=== PATIENT | female | born 1955 | race Caucasian/White ===

== ENCOUNTER 2019-05-19 13:59 | Emergency (ER) | payer MEDICARE ==
[~2019-05-19] VITALS: Ht 157.5 cm; Wt 108.9 kg
[~2019-05-19 13:59] MED LIST: GLIMEPIRIDE4 MG PO; LANTUS100 UNITS/ SQ; LISINOPRIL10 MG PO; LISINOPRIL2.5 MG PO; METFORMIN HCL1000 MG PO; NOVOLOG100 UNITS/ SQ; ONGLYZA5 MG PO; PRAVASTATIN SOD20 MG PO
--- OUTSIDE RECORDS SUMMARY | 2019-05-19 14:02 | XMS REPORT | Continuity of Care Document ---
Author Author [email or web address] Address Unknown Phone Unavailable Care Team Providers Care Public Stenographer Name Role Phone [employer] Unavailable Unavailable Problems Problem Status Onset Date Classification Date Reported Comments Source Acute bronchitis, unspecified 09/17/2018 04/01/2019 [facility] J20.9 Active 09/11/2018 [facility] Q63.9 N18.3 RENAL COMPROMISED Active 02/25/2018 [facility] Pain in left foot 10/31/2017 01/31/2018 [facility] M79.672 Active 10/25/2017 [facility] UNK Active 05/08/2017 [facility] ABD RENAL PROTOCOL DX: N28.89=OTHER SPE Active 11/07/2016 [facility] DX: S83.2=BUCKET-HANDLE TEAR OF MEDIAL Active 05/25/2016 [facility] Discharge Diagnosis: Acute UTI 01/19/2016 01/22/2016 [facility] Discharge Diagnosis: Diverticulosis 01/19/2016 01/22/2016 [facility] DIZZINESS Active 01/18/2016 [facility] INFED 1GM, CPT-90373, D50.9 Active 01/05/2016 [facility] Anemia Active Problem 04/01/2019 [facility] Arthritis Resolved Problem 04/01/2019 [facility] CKD stage 3, GFR 30-59 ml/min(Confirmed) Resolved Problem 04/01/2019 [facility] Diabetes Active Problem 04/01/2019 [facility] Hypertension Active Problem 04/01/2019 [facility] Morbid obesity Active Problem 04/01/2019 [facility] Diaphragmatic hernia without obstruction or gangrene 04/01/2019 [facility] IRON DEFICIENCY ANEMIA, UNSPECIFIED Active [facility] Medications Medication Details Route Status Patient Instructions Ordering Provider Order Date Source Albuterol 0.833 MG/ML / Ipratropium Braxton 0.167 MG/ML Inhalant Solution 3 mL, Route: NEB, Dosing Weight 105.114, kg, ONCE, STAT, Start date: 06/04/17 6:57:00 CDT, Stop date: 06/04/17 6:57:00 CDT Inactive 06/04/2017 [facility] Sodium Chloride 0.9% IV 500 mL 500 mL, Rate: 25 ml/hr, Infuse over: 20 hr, Route: IV, Dosing Weight 105.114 kg, Total Volume: 500, Start date: 06/04/17 6:57:00 CDT, Duration: 30 day, Stop date: 07/04/17 6:56:00 CDT Inactive 06/04/2017 [facility] glimepiride 4 mg oral tablet 4 mg=1 tab, PO, Daily, 0 Refill(s) Active 05/30/2017 [facility] Insulin Glargine 100 UNT/ML Injectable Solution [Lantus] 10 unit, SUB-Q, Daily, # 10 mL, 0 Refill(s) Active 05/30/2017 [facility] carvedilol 6.25 mg oral tablet 6.25 mg=1 tab, PO, BID, 0 Refill(s) Active 05/30/2017 [facility] saxagliptin 5 MG Oral Tablet [Onglyza] 5 mg=1 tab, PO, Daily, 0 Refill(s) Active 05/30/2017 [facility] Famotidine 20 MG Oral Tablet [Pepcid] 20 mg=1 tab, PO, BID, # 60 tab, 0 Refill(s) Active 01/19/2016 [facility] Ondansetron 4 MG Disintegrating Tablet [Zofran] 4 mg=1 tab, PO, BID, PRN Nausea and Vomiting, Dissolve tab under tongue, X 5 day, # 10 tab, 0 Refill(s) Active 01/19/2016 [facility] Ciprofloxacin 250 MG Oral Tablet [Cipro] 250 mg=1 tab, PO, Q12H, X 7 day, # 14 tab, 0 Refill(s) Active 01/19/2016 [facility] Famotidine 20 mg, Route: IVP, ONCE, Dosing Weight 100, kg, Priority: STAT, Start date: 01/18/16 23:25:00, Stop date: 01/18/16 23:25:00 Inactive 01/19/2016 [facility] Ondansetron 4 mg, Route: IVP, Drug form: INJ, ONCE, Dosing Weight 100, kg, Priority: STAT, Start date: 01/18/16 23:25:00, Stop date: 01/18/16 23:25:00 Inactive 01/19/2016 [facility] Sodium Chloride 0.154 MEQ/ML Injectable Solution 1,000 mL, 1,000 ml/hr, Infuse Over: 1 hr, Route: IV, ONCE, Priority: STAT, Dosing Weight 100 kg, Start date: 01/18/16 23:25:00, Duration: 1 doses or times, Stop date: 01/18/16 23:25:00 Inactive 01/19/2016 [facility] Famotidine 20 mg, 2 mL, Route: IVP, Drug form: INJ, ONCE, Dosing Weight 100, kg, Priority: STAT, Start date: 01/18/16 21:49:00, Stop date: 01/18/16 21:49:00Notes: (Same as: Pepcid) Can be dilute in 5-10cc NS IVP: Slow IV push over at least 2 minutes. Inactive 01/19/2016 [facility] Ondansetron 4 mg, 2 mL, Route: IVP, Drug form: INJ, ONCE, Dosing Weight 100, kg, Priority: STAT, Start date: 01/18/16 21:49:00, Stop date: 01/18/16 21:49:00Notes: (Same as: Zofran) MEDICATION WASTE Pro duct Size: 4 mg Product Wasted: ___ mg Inactive 01/19/2016 [facility] Sodium Chloride 0.154 MEQ/ML Injectable Solution 1,000 mL, 1000 ml/hr, Infuse Over: 1 hr, Route: IV, 1,000, Drug form: INJ, ONCE, Priority: STAT, Dosing Weight 100 kg, Start date: 01/18/16 21:49:00, Duration: 1 doses or times, Stop date: 01/18/16 21:49:00 Inactive 01/19/2016 [facility] Saline Flush 0.9% 10 mL, Route: IVP, Drug Form: INJ, Dosing Weight 100, kg, PRN, PRN Line Flush, Start date: 01/18/16 21:49:00, Duration: 30 day, Stop date: 02/17/16 21:48:00Notes: (Same as: BD Posiflush) No Longer Active 01/19/2016 [facility] DexFerrum + Sodium Chloride 0.9% IV 500 mL 950 mg, 19 mL, Route: IVPB, Drug form: INJ, ONCALL, Start date: 01/13/16 9:00:00, Duration: 1 day, Stop date: 01/14/16 8:59:00Notes: (Same as:DexFerrum) Non Formulary MEDICATION WASTE Product Size: 100 mg Product Wasted: _50__ mg Inactive 01/13/2016 [facility] DexFerrum + Sodium Chloride 0.9% IV 100 mL 50 mg, 1 mL, Route: IVPB, Drug form: INJ, ONCALL, Start date: 01/13/16 8:30:00, Duration: 1 day, Stop date: 01/14/16 8:29:00Notes: (Same as:DexFerrum) Non Formulary MEDICATION WASTE Product Size: 100 mg Product Wasted: _50__ mg Inactive 01/13/2016 [facility] dexamethasone + Sodium Chloride 0.9% IV 50 mL 10 mg, 2.5 mL, Route: IVPB, Drug form: INJ, ONCALL, Start date: 01/13/16 8:30:00, Duration: 1 day, Stop date: 01/14/16 8:29:00 Inactive 01/13/2016 [facility] Pepcid 20 mg, 2 mL, Route: IVP, Drug form: INJ, ONCALL, Start date: 01/13/16 8:30:00, Duration: 1 day, Stop date: 01/14/16 8:29:00Notes: (Same as: Pepcid) Can be dilute in 5-10cc NS IVP: Slow IV push over at least 2 minutes. Inactive 01/13/2016 [facility] Sodium Chloride 0.9% IV IV, 30 ml/hr, ONCALL, Start date: 01/13/16 8:30:00, Duration: 1, 250 ml Inactive 01/13/2016 [facility] Benadryl + Sodium Chloride 0.9% IV 50 mL 25 mg, 0.5 mL, Route: IVPB, Drug form: INJ, ONCALL, Start date: 01/13/16 8:30:00, Duration: 1 day, Stop date: 01/14/16 8:29:00Notes: (Same as: Benadryl) Inactive 01/13/2016 [facility] Allergies, Adverse Reactions, Alerts Substance Category Reaction Severity Reaction type Status Date Reported Comments Source No Known Medication Allergies Assertion Drug allergy [facility] Immunizations No Data Provided for This Section Results Order Name Results Value Reference Range Date Interpretation Comments Source CHEM PANEL eGFR 25 05/30/2017 Result Comment: The eGFR is calculated using the CKD-EPI formula. In most young, healthy individuals the eGFR will be >90 mL/min/1.73m2. The eGFR declines with age. An eGFR of 60-89 may be normal in some populations, particularly the elderly, for whom the CKD-EPI formula has not been extensively validated. Use of the eGFR is not recommended in the following populations:

Individuals with unstable creatinine concentrations, including patients and those with serious co-morbid conditions.

Patients with extremes in muscle mass or diet.

The data above are obtained from the National Kidney Disease Education Program (NKDEP) which additionally recommends that when the eGFR is used in patients with extremes of body mass index for purposes of drug dosing, the eGFR should be multiplied by the estimated BMI. [facility] CHEM PANEL Chloride Lvl 104 95 - 109 05/30/2017 [facility] CHEM PANEL Potassium Lvl 5.1 3.5 - 5.1 05/30/2017 [facility] CHEM PANEL CO2 28 24 - 32 05/30/2017 [facility] CHEM PANEL AGAP 10.1 10.0 - 20.0 05/30/2017 [facility] CHEM PANEL Calcium Lvl 8.5 8.5 - 10.5 05/30/2017 [facility] CHEM PANEL Glucose Lvl 120 70 - 99 05/30/2017 [facility] CHEM PANEL BUN 46 7 - 22 05/30/2017 [facility] CHEM PANEL Sodium Lvl 137 135 - 145 05/30/2017 [facility] CHEM PANEL Creatinine Lvl 2.10 0.50 - 1.40 05/30/2017 [facility] CHEM PANEL POC Creatinine 2.0 0.5 - 1.4 11/14/2016 [facility] CHEM PANEL eGFR 26 11/14/2016 Result Comment: The eGFR is calculated using the CKD-EPI formula. In most young, healthy individuals the eGFR will be >90 mL/min/1.73m2. The eGFR declines with age. An eGFR of 60-89 may be normal in some populations, particularly the elderly, for whom the CKD-EPI formula has not been extensively validated. Use of the eGFR is not recommended in the following populations:

Individuals with unstable creatinine concentrations, including patients and those with serious co-morbid conditions.

Patients with extremes in muscle mass or diet.

The data above are obtained from the National Kidney Disease Education Program (NKDEP) which additionally recommends that when the eGFR is used in patients with extremes of body mass index for purposes of drug dosing, the eGFR should be multiplied by the estimated BMI. [facility] URINE AND STOOL UA Urobilinogen <=1.0 mg/dL 0.1 - 1.0 01/19/2016 [facility] URINE AND STOOL UA Color Ltyellow 01/19/2016 [facility] URINE AND STOOL UA Leuk Est Large *ABN* (01/19/16 3:08 AM) Negative 01/19/2016 [facility] URINE AND STOOL UA Bacteria Occasional /HPF None Seen /HPF 01/19/2016 [facility] URINE AND STOOL UA WBC >182 0 - 5 01/19/2016 [facility] URINE AND STOOL UA Sq Epi Occasional /LPF Few /LPF 01/19/2016 [facility] URINE AND STOOL UA Bili Negative *NA* (01/19/16 3:08 AM) Negative 01/19/2016 [facility] URINE AND STOOL UA RBC 6 0 - 2 01/19/2016 [facility] URINE AND STOOL UA Blood Small *ABN* (01/19/16 3:08 AM) Negative 01/19/2016 [facility] URINE AND STOOL UA Nitrite Negative (01/19/16 3:08 AM) Negative 01/19/2016 [facility] URINE AND STOOL UA Protein Negative mg/dL Negative mg/dL 01/19/2016 [facility] URINE AND STOOL UA Ketones Negative mg/dL Negative mg/dL 01/19/2016 [facility] URINE AND STOOL UA Glucose 50 mg/dL Negative mg/dL 01/19/2016 [facility] URINE AND STOOL UA pH 5.0 5.0 - 8.0 01/19/2016 [facility] URINE AND STOOL UA Turbidity Slight *ABN* (01/19/16 3:08 AM) Clear 01/19/2016 [facility] URINE AND STOOL UA Spec Grav 1.011 <=1.030 01/19/2016 [facility] CARDIAC ENZYMES Troponin-I <0.02 0.00 - 0.40 01/19/2016 [facility] CARDIAC ENZYMES CK MB 0.7 0.5 - 3.6 01/19/2016 [facility] CARDIAC ENZYMES Total CK 51 12 - 191 01/19/2016 [facility] CARDIAC ENZYMES CK MB Index 1.4 0.0 - 2.5 01/19/2016 [facility] CHEM PANEL Amylase Lvl 53 25 - 115 01/19/2016 [facility] CHEM PANEL Lipase Lvl 115 73 - 393 01/19/2016 [facility] CHEM PANEL A/G Ratio 0.8 0.7 - 1.6 01/19/2016 [facility] CHEM PANEL Globulin 4.0 2.0 - 4.0 01/19/2016 [facility] CHEM PANEL AGAP 12.3 10.0 - 20.0 01/19/2016 [facility] CHEM PANEL Bili Total 0.2 0.2 - 1.3 01/19/2016 [facility] CHEM PANEL Alk Phos 98 39 - 136 01/19/2016 [facility] CHEM PANEL B/C Ratio 25 6 - 25 01/19/2016 [facility] PANEL eGFR 25 01/19/2016 Result Comment: The eGFR is calculated using the CKD-EPI formula. In most young, healthy individuals the eGFR will be >90 mL/min/1.73m2. The eGFR declines with age. An eGFR of 60-89 may be normal in some populations, particularly the elderly, for whom the CKD-EPI formula has not been extensively validated. Use of the eGFR is not recommended in the following populations:

Individuals with unstable creatinine concentrations, including patients and those with serious co-morbid conditions.

Patients with extremes in muscle mass or diet.

The data above are obtained from the National Kidney Disease Education Program (NKDEP) which additionally recommends that when the eGFR is used in patients with extremes of body mass index for purposes of drug dosing, the eGFR should be multiplied by the estimated BMI. [facility] CHEM PANEL Creatinine Lvl 2.10 0.50 - 1.40 01/19/2016 [facility] CHEM PANEL BUN 52 7 - 22 01/19/2016 [facility] CHEM PANEL Glucose Lvl 203 70 - 99 01/19/2016 [facility] CHEM PANEL Albumin Lvl 3.3 3.5 - 5.0 01/19/2016 [facility] CHEM PANEL Total Protein 7.3 6.4 - 8.4 01/19/2016 [facility] CHEM PANEL AST 21 0 - 37 01/19/2016 [facility] CHEM PANEL ALT 16 0 - 65 01/19/2016 [facility] CHEM PANEL Potassium Lvl 5.3 3.5 - 5.1 01/19/2016 [facility] CHEM PANEL Sodium Lvl 136 135 - 145 01/19/2016 [facility] CHEM PANEL Calcium Lvl 9.2 8.5 - 10.5 01/19/2016 [facility] CHEM PANEL Chloride Lvl 106 95 - 109 01/19/2016 [facility] CHEM PANEL CO2 23 24 - 32 01/19/2016 [facility] CHEM PANEL Magnesium Lvl 1.9 1.8 - 2.4 01/19/2016 [facility] HEMATOLOGY Hct 27.6 36.0 - 48.0 01/19/2016 [facility] HEMATOLOGY MCV 76.8 80.0 - 98.0 01/19/2016 [facility] HEMATOLOGY MCH 24.2 27.0 - 31.0 01/19/2016 [facility] MCHC 31.5 32.0 - 36.0 01/19/2016 [facility] HEMATOLOGY RDW 14.9 11.5 - 14.5 01/19/2016 [facility] HEMATOLOGY Platelet 253 133 - 450 01/19/2016 [facility] HEMATOLOGY MPV 9.3 7.4 - 10.4 01/19/2016 [facility] Hgb 8.7 12.0 - 16.0 01/19/2016 [facility] HEMATOLOGY WBC 7.7 3.7 - 10.4 01/19/2016 [facility] HEMATOLOGY RBC 3.60 4.20 - 5.40 01/19/2016 [facility] Eosinophils # 0.3 0.0 - 0.5 01/19/2016 [facility] HEMATOLOGY Microcyte 1+ *ABN* (01/18/16 10:23 PM) None Seen 01/19/2016 [facility] HEMATOLOGY Monocytes # 0.6 0.0 - 0.8 01/19/2016 [facility] HEMATOLOGY Lymphocytes # 1.9 1.0 - 5.5 01/19/2016 [facility] HEMATOLOGY Basophils 0.6 0.0 - 1.0 01/19/2016 [facility] HEMATOLOGY Segs-Bands # 4.9 1.5 - 8.1 01/19/2016 [facility] HEMATOLOGY Eosinophils 3.6 0.0 - 4.0 01/19/2016 [facility] HEMATOLOGY Monocytes 7.6 2.0 - 12.0 01/19/2016 [facility] HEMATOLOGY Segs 63.1 45.0 - 75.0 01/19/2016 [facility] HEMATOLOGY Lymphocytes 25.1 20.0 - 40.0 01/19/2016 [facility] Pathology Reports No Data Provided for This Section Diagnostic Reports Report Value Date Source Chest 2 views DX Clinical Indication: ] Difficulty Breathing for 2 weeks Comparison: None FINDINGS: The PA and lateral chest radiographs shows normal lung volumes without interstitial or airspace opacities, pleural effusions or pneumothorax. The heart size and pulmonary vasculature are normal. There is a large hiatal hernia. The trachea is midline. There are no clinically significant osseous abnormalities noted. IMPRESSION: 1. No chest radiographic evidence of acute cardiopulmonary disease. 2. Large hiatal hernia. 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 3-D postprocessing reformations were also obtained. FINDINGS: Liver: Normal liver contour and signal. No focal hepatic lesion. Gallbladder: Unremarkable. Bile ducts: No ductal dilatation or choledocholithiasis. Spleen: Normal in size and signal. Pancreas: Lobulated lesion (2.2 x 3.1 x 2.3 cm) centered within the pancreatic uncinate process demonstrates numerous thin septations. There is questionable connection of this lesion to the main pancreatic duct. No evidence of ductal dilatation or atrophy. Few tiny sub-5 mm cysts throughout the pancreas. Possible pancreatic divisum. Adrenals: No nodules. Kidneys: Small bilateral kidneys. Cortical scarring within both kidneys. Numerous tiny bilateral renal cysts. No hydronephrosis. No discrete mass. Peritoneum/retroperitoneum: No significant ascites. Vascular: Normal flow signal within the abdominal aorta and IVC. No evidence of aneurysm or dissection. Lymph nodes: No significant lymphadenopathy. Additional findings: Large hiatal hernia. IMPRESSION: Lobulated lesion (2.2 x 3.1 x 2.3 cm) within the pancreatic uncinate process. Differential considerations include serous cystadenoma/cystadenocarcinoma versus a side branch intraductal papillary mucinous neoplasm. Evaluation of this lesion limited due to the lack of IV contrast. If patient cannot receive IV contrast due to chronic kidney failure, consider further evaluation with endoscopic ultrasound. Small bilateral kidneys containing numerous tiny cysts. Large hiatal hernia. SL: SYELIZABETH 03/03/2018 [facility] Foot series DX Exam: Left Foot series DX Clinical Indication: - M79.642 Pain in left hand. Comparison: None. FINDINGS: The 3 views of the foot show diffuse soft tissue edema. Sclerosis is noted involving the proximal 2nd, 3rd and 4th metatarsals with complete loss of the tarsal metatarsal joint space. No acute fracture, subluxation or dislocation. Diffuse vascular calcifications noted. IMPRESSION: 1. Diffuse soft tissue edema with partial metatarsal degenerative changes which may represent Charcot joint. Follow-up magnetic resonance imaging may be helpful for further evaluation as clinically indicated. SL: MINDA 10/25/2017 [facility] Abdomen wo IV contrast CT EXAM: CT abdomen HISTORY: Renal mass COMPARISON: CT 01/19/2016 TECHNIQUE: Axial images of the abdomen without contrast; no IV contrast due to renal insufficiency. Sagittal and coronal reformats. DLP: [id number] FINDINGS: Limited exam without contrast. KIDNEYS: Marked scarring of both kidneys. OTHER SOLID ORGANS: Unenhanced images of the liver, spleen, pancreas, gallbladder and adrenals appear unremarkable. LOWER CHEST: Stable large ventral hernia with intrathoracic stomach. Calcification of the mitral annulus. PERITONEUM AND RETROPERITONEUM: Few small retroperitoneal lymph nodes are nonspecific. No free fluid. Atherosclerosis aorta. IMPRESSION: 1. Marked scarring of the kidneys with associated lobular contour and lack of IV contrast limit evaluation for a mass. An MRI of the kidneys without contrast can further evaluate. 2. Large hiatal hernia with intrathoracic stomach. SL: [id number] 11/14/2016 [facility] Chest 2 views DX Study: Chest 2 views DX Clinical Indication: Dyspnea Comparison: None FINDINGS: The cardiac silhouette is normal in size. The lungs are clear and without consolidation or congestion. No pleural effusion or pneumothorax is seen. Osseous structures are unremarkable. Large hiatal hernia is noted. IMPRESSION: No acute cardiopulmonary disease. SL: [id number] 01/19/2016 [facility] Abdomen/Pelvis wo IV contrast CT Study: Abdomen/Pelvis wo IV contrast CT Clinical Indication: Upper abdominal pain Comparison: None TECHNIQUE: Multiple axial CT images of the abdomen and pelvis were acquired without the administration of intravenous contrast. Oral contrast was administered to the patient. Sagittal and coronal reformatted images were performed. CT Radiation Dose DLP 852.75 mGy-cm FINDINGS: The visualized lung bases are clear bilaterally. Calcified splenic granulomas are seen. Liver, gallbladder, pancreas, and adrenal glands are within the normal limits imposed by the lack of intravenous contrast. Mild atrophy of the kidneys is seen. Urinary bladder is well-distended. Uterus and visualized ovaries are unremarkable. Large hiatal hernia is seen. Multiple sigmoid diverticula are seen without inflammatory change to suggest acute diverticulitis. Appendix is unremarkable. No intraperitoneal free air, free fluid, or pathologic adenopathy is noted. Degenerative change of the lower lumbar spine is seen. IMPRESSION: 1. No acute intra-abdominal/pelvic abnormality. 2. Colonic diverticulosis without acute diverticulitis. 3. Large hiatal hernia. SL: [id number] 01/19/2016 [facility] Consultation Notes No Data Provided for This Section Discharge Summaries No Data Provided for This Section History and Physicals No Data Provided for This Section Vital Signs Vital Sign Value Date Comments Source Systolic (mm Hg) 152 10/26/2017 [facility] Diastolic (mm Hg) 78 10/26/2017 [facility] Heart Rate 84 10/26/2017 [facility] Systolic (mm Hg) 166 06/04/2017 [facility] Diastolic (mm Hg) 86 06/04/2017 [facility] Respitory Rate 16 06/04/2017 [facility] Systolic (mm Hg) 144 06/04/2017 [facility] Diastolic (mm Hg) 79 06/04/2017 [facility] Respitory Rate 17 06/04/2017 [facility] Respitory Rate 21 06/04/2017 [facility] Systolic (mm Hg) 128 06/04/2017 [facility] Diastolic (mm Hg) 69 06/04/2017 [facility] Height 157.48 cm 05/30/2017 [facility] BMI Calculated 42.38 05/30/2017 [facility] Weight 105.114 05/30/2017 [facility] Temperature Oral (F) 98.0 F 05/30/2017 [facility] Heart Rate 74 05/30/2017 [facility] Systolic (mm Hg) 175 01/19/2016 [facility] Diastolic (mm Hg) 96 01/19/2016 [facility] Respitory Rate 16 01/19/2016 [facility] Respitory Rate 18 01/19/2016 [facility] Systolic (mm Hg) 153 01/19/2016 [facility] Diastolic (mm Hg) 87 01/19/2016 [facility] Respitory Rate 20 01/19/2016 [facility] Heart Rate 82 01/19/2016 [facility] Weight 100 01/19/2016 [facility] BMI Calculated 39.05 01/19/2016 [facility] Height 160.02 cm 01/19/2016 [facility] Temperature Oral (F) 97.6 F 01/19/2016 [facility] Systolic (mm Hg) 141 01/19/2016 [facility] Diastolic (mm Hg) 80 01/19/2016 [facility] Heart Rate 83 01/19/2016 [facility] Temperature Oral (F) 98.1 F 01/13/2016 [facility] Respitory Rate 16 01/13/2016 [facility] Heart Rate 87 01/13/2016 [facility] Systolic (mm Hg) 122 01/13/2016 [facility] Diastolic (mm Hg) 73 01/13/2016 [facility] Encounters Location Location Details Encounter Type Encounter Number Reason For Visit Attending Provider ADM Date DC Date Status Source [facility] [place] [facility] [id number] John Franco 02/15/2015 [facility] [id number] Hank Roy 01/13/2016 02/12/2016 [facility] [id number] Miya Arora 01/19/2016 01/19/2016 [facility] Outpatient [id number] [facility] 11/03/2016 [facility] Outpatient [id number] [facility] 11/14/2016 11/15/2016 [facility] Outpatient [id number] [facility] 11/24/[address] [facility] Outpatient [id number] [facility] 12/05/[address] [facility] Outpatient [id number] [facility] 04/02/[address] [facility] Outpatient [id number] XIOMY GARNER 04/10/2017 [facility] Bedded Outpatient [id number] John Avilez 06/04/2017 06/04/2017 [facility] Outpatient [id number] Jignesh Johnson 10/25/2017 10/26/2017 [facility] Outpatient [id number] [facility] 10/26/2017 [facility] Outpatient [id number] [facility] 10/26/2017 10/27/2017 [facility] Outpatient [id number] Maurizio [facility] 03/03/2018 03/04/2018 [facility] Outpatient [id number] Jignesh Johnson 09/11/2018 09/12/2018 [facility] Procedures Procedure Code Date Perfomer Comments Source Mammogram [id number] 10/15/2013 [facility] Mammogram [id number] 10/15/2013 [facility] Colonoscopy [id number] 10/15/2012 [facility] Colonoscopy [id number] 10/15/2012 [facility] Esophagogastroduodenoscopy [id number] [facility] Meniscal repair [id number] [facility] Esophagogastroduodenoscopy [id number] [facility] Meniscal repair [id number] [facility] Assessment and Plan Assessment and Plan Date Source Extracted from:Title: Education PreOp Generic Author: Rigo Martinez RN Date: 06/04/17 Patient Education Preoperative Procedure Education Identified Need: Diagnosis (Mass), Surgery/Procedure (EGD/EUS), Safety/patient in view/call renee in reach, Infection Control. Resources/Interventions Used: Procedure Specific Instructions, Unit Specific Protocols Endoscopy. Identified Learners: patient. Teaching Method: verbal instruction. Motivation Level: responsive/eager, asks questions. Ready to Learn: Yes. Understanding/Response: Good/Verbalizes. Date/Time: 06/04/2017 06:39. Author: Rigo Martinez RN. 06/04/2017 [facility] Plan of Care No Data Provided for This Section Social History Social History Date Source Social History TypeResponse Alcohol Never Smoking Status Never smoker; Exposure to Tobacco Smoke None; Cigarette Smoking Last 365 Days No; Reg Smoking Cessation Counseling No entered on: 10/26/17 01/13/2016 [facility] Social History TypeResponse Alcohol Never Smoking Status Never smoker; Exposure to Tobacco Smoke None; Cigarette Smoking Last 365 Days No; Reg Smoking Cessation Counseling No entered on: 10/26/17 01/13/2016 [facility] No data available for this section 02/16/2015 [facility] Family History No Data Provided for This Section Advance Directives No Data Provided for This Section Functional Status No Data Provided for This Section
--- OUTSIDE RECORDS SUMMARY | 2019-05-19 14:03 | XMS REPORT | Summary of Care ---
Author Organization Unknown Address Unknown Phone Unavailable Encounter HQ Encntr_candy(JEAN) [id number] Date(s): 02/15/15 - 02/15/15 [facility] Outpatient Imaging - [address] [phone] Discharge Disposition: Home Physician Attending: John Franco MD Vital Signs No data available for this section Problem List No data available for this section Allergies, Adverse Reactions, Alerts No data available for this section Medications No data available for this section Results No data available for this section Immunizations No data available for this section Procedures No data available for this section Social History No data available for this section Assessment and Plan No data available for this section
--- OUTSIDE RECORDS SUMMARY | 2019-05-19 14:03 | XMS REPORT | Summary of Care ---
Author Author [facility] Organization [facility] Address Unknown Phone Unavailable Encounter HQ Desi(FIN) [id number] Date(s): 10/26/17 - 10/26/17 [facility] [address], [address] [place] [address] [phone] Discharge Disposition: Home or Self Care Attending Physician: Maurizio Soto MD Vital Signs Most recent to 1 oldest [Reference Range]: Blood Pressure 152/78 mmHg [90-140/60-90 mmHg] *HI* (10/26/17 11:32 AM) Peripheral Pulse 84 bpm Rate [60-100 bpm] (10/26/17 11:32 AM) Problem List Condition Effective Dates Status Health Status Informant Anemia(Confirmed) Active Arthritis(Confirmed) Resolved CKD (chronic kidney Resolved disease) stage 3, GFR 30-59 ml/min(Confirmed) Diabetes(Confirmed) Active Hypertension(Confirm Active ed) Morbid Active obesity(Confirmed) Allergies, Adverse Reactions, Alerts Substance Reaction Severity Status NKDA Active Medications No Known Medications Results No data available for this section Immunizations No data available for this section Procedures Procedure Date Related Diagnosis Body Site Status Mammogram 2013 Completed Colonoscopy 2012 Completed Esophagogastroduodenoscopy Completed Meniscal repair Completed Social History Social History Type Response Alcohol Never Smoking Status Never smoker; Exposure to Tobacco Smoke None; Cigarette Smoking Last 365 Days No; Reg Smoking Cessation Counseling No entered on: 10/26/17 Assessment and Plan No data available for this section
--- OUTSIDE RECORDS SUMMARY | 2019-05-19 14:03 | XMS REPORT | Summary of Care ---
Author Author [facility] Organization [facility] Address Unknown Phone Unavailable Encounter CRISTOPHER Weeks(JEAN) [id number] Date(s): 01/18/16 - 01/19/16 [facility] [address] [place] [address]- Discharge Diagnosis: Acute UTI Discharge Diagnosis: Diverticulosis Discharge Disposition: Home Attending Physician: Miya Arora DO Vital Signs 1 2 3 Most recent to oldest [Reference Range]: 160.02 cm (01/18/16 9:46 PM) Height 97.6 DegF (01/18/16 9:46 PM) Temperature Oral [96.4-99.1 DegF] 175/96 mmHg *HI* (01/19/16 3:47 AM) 153/87 mmHg *HI* (01/18/16 10:24 PM) 141/80 mmHg *HI* (01/18/16 9:46 PM) Blood Pressure [90-140/60-90 mmHg] 16 BRMIN (01/19/16 3:47 AM) 18 BRMIN (01/19/16 1:40 AM) 20 BRMIN (01/18/16 10:24 PM) Respiratory Rate [14-20 BRMIN] 82 bpm (01/18/16 10:24 PM) 83 bpm (01/18/16 9:46 PM) Peripheral Pulse Rate [60-100 bpm] 100 kg (01/18/16 9:46 PM) Weight 39.05 m2 (01/18/16 9:46 PM) Body Mass Index Problem List Condition Effective Dates Status Health Status Informant Anemia(Confirmed) Active Arthritis(Confirmed) Resolved CKD (chronic kidney Resolved disease) stage 3, GFR 30-59 ml/min(Confirmed) Diabetes(Confirmed) Active Hypertension(Confirm Active ed) Allergies, Adverse Reactions, Alerts Substance Reaction Severity Status NKDA Active Medications Cipro 250 mg oral tablet 250 mg=1 tab, PO, Q12H, X 7 day, # 14 tab, 0 Refill(s) Start Date: 01/19/16 Stop Date: 01/26/16 Status: Ordered famotidine 20 mg, 2 mL, Route: IVP, Drug form: INJ, ONCE, Dosing Weight 100, kg, Priority: STAT, Start date: 01/18/16 21:49:00, Stop date: 01/18/16 21:49:00 Notes: (Same as: Pepcid)Can be dilute in 5-10cc NS IVP: Slow IV push over at le ast 2 minutes. Start Date: 01/18/16 Stop Date: 01/18/16 Status: Completed famotidine 20 mg, Route: IVP, ONCE, Dosing Weight 100, kg, Priority: STAT, Start date: 02/27 23:25:00, Stop date: 01/18/16 23:25:00 Start Date: 01/18/16 Stop Date: 01/18/16 Status: Discontinued ondansetron 4 mg, 2 mL, Route: IVP, Drug form: INJ, ONCE, Dosing Weight 100, kg, Priority: S TAT, Start date: 01/18/16 21:49:00, Stop date: 01/18/16 21:49:00 Notes: (Same as: Reagan) MEDICATION WASTE Product Size: 4 mgProduct Was dominga: ___ mg Start Date: 01/18/16 Stop Date: 01/18/16 Status: Completed ondansetron 4 mg, Route: IVP, Drug form: INJ, ONCE, Dosing Weight 100, kg, Priority: STAT, S tart date: 01/18/16 23:25:00, Stop date: 01/18/16 23:25:00 Start Date: 01/18/16 Stop Date: 01/18/16 Status: Discontinued Pepcid 20 mg oral tablet 20 mg=1 tab, PO, BID, # 60 tab, 0 Refill(s) Start Date: 01/19/16 Status: Ordered Saline Flush 0.9% 10 mL, Route: IVP, Drug Form: INJ, Dosing Weight 100, kg, PRN, PRN Line Flush, S tart date: 01/18/16 21:49:00, Duration: 30 day, Stop date: 02/17/16 21:48:00 Notes: (Same as: BD Posiflush) Start Date: 01/18/16 Stop Date: 01/19/16 Status: Discontinued Sodium Chloride 0.9% (Bolus) IV 1,000 mL, 1000 ml/hr, Infuse Over: 1 hr, Route: IV, 1,000, Drug form: INJ, ONCE, Priority: STAT, Dosing Weight 100 kg, Start date: 01/18/16 21:49:00, Duration: 1 doses or times, Stop date: 01/18/16 21:49:00 Start Date: 01/18/16 Stop Date: 01/18/16 Status: Completed Sodium Chloride 0.9% (Bolus) IV 1,000 mL, 1,000 ml/hr, Infuse Over: 1 hr, Route: IV, ONCE, Priority: STAT, Dosin g Weight 100 kg, Start date: 01/18/16 23:25:00, Duration: 1 doses or times, Stop date: 01/18/16 23:25:00 Start Date: 01/18/16 Stop Date: 01/18/16 Status: Discontinued Zofran ODT 4 mg oral tablet, disintegrating 4 mg=1 tab, PO, BID, PRN Nausea and Vomiting, Dissolve tab under tongue, X 5 day , # 10 tab, 0 Refill(s) Start Date: 01/19/16 Stop Date: 01/24/16 Status: Ordered Results ELECTROLYTES Most recent to 1 oldest [Reference Range]: Sodium Lvl [135-145 136 mEq/L mEq/L] (01/18/16 10:23 PM) Potassium Lvl 5.3 mEq/L [3.5-5.1 mEq/L] *HI* (01/18/16 10:23 PM) Chloride Lvl [95-109 106 mEq/L mEq/L] (01/18/16 10:23 PM) CO2 [24-32 mEq/L] 23 mEq/L *LOW* (01/18/16 10:23 PM) AGAP [10.0-20.0 12.3 mEq/L mEq/L] (01/18/16 10:23 PM) CHEM PANEL Most recent to 1 oldest [Reference Range]: Creatinine Lvl 2.10 mg/dL [0.50-1.40 mg/dL] *HI* (01/18/16 10:23 PM) eGFR 25 mL/min/1.73m2 1 *NA* (01/18/16: PM) BUN [7-22 mg/dL] 52 mg/dL *HI* (01/18/16:23 PM) B/C Ratio [6-25] 25 (01/18/16:23 PM) Glucose Lvl [70-99 203 mg/dL mg/dL] *HI* (01/18/16: PM) Total Protein 7.3 g/dL [6.4-8.4 g/dL] (01/18/16: PM) Albumin Lvl [3.5-5.0 3.3 g/dL g/dL] *LOW* (01/18/16: PM) Globulin [2.0-4.0 4.0 g/dL g/dL] (01/18/16: PM) A/G Ratio [0.7-1.6] 0.8 (01/18/16: PM) Calcium Lvl 9.2 mg/dL [8.5-10.5 mg/dL] (01/18/16:23 PM) Magnesium Lvl 1.9 mg/dL [1.8-2.4 mg/dL] (01/18/16:23 PM) ALT [0-65 unit/L] 16 unit/L (01/18/16:23 PM) AST [0-37 unit/L] 21 unit/L (01/18/16:23 PM) Alk Phos [39-136 98 unit/L unit/L] (01/18/16:23 PM) Bili Total [0.2-1.3 0.2 mg/dL mg/dL] (01/18/16 10:23 PM) Amylase Lvl [25-115 53 unit/L unit/L] (01/18/16 10:23 PM) Lipase Lvl [73-393 115 unit/L unit/L] (01/18/16 10:23 PM) 1Result Comment: The eGFR is calculated using the [...] from the National Kidney Disease Education Program ( NKDEP) which additionally recommends that when the eGFR is used in patients with extremes of body mass index for purposes of drug dosing, the eGFR should be mul tiplied by the estimated BMI. CARDIAC ENZYMES Most recent to 1 oldest [Reference Range]: Total CK [12-191 51 unit/L unit/L] (01/18/16 10:23 PM) CK MB [0.5-3.6 0.7 ng/mL ng/mL] (01/18/16 10:23 PM) CK MB Index 1.4 [0.0-2.5] (01/18/16 10:23 PM) Troponin-I <0.02 ng/mL [0.00-0.40 ng/mL] (01/18/16 10:23 PM) URINE AND STOOL Most recent to 1 oldest [Reference Range]: UA Turbidity [Clear] Slight *ABN* (01/19/16 3:08 AM) UA Color Ltyellow *NA* (01/19/16 3:08 AM) UA pH [5.0-8.0] 5.0 (01/19/16 3:08 AM) UA Spec Grav 1.011 [<=1.030] (01/19/16 3:08 AM) UA Glucose [Negative 50 mg/dL mg/dL] *ABN* (01/19/16 3:08 AM) UA Blood [Negative] Small *ABN* (01/19/16 3:08 AM) UA Ketones [Negative Negative mg/dL mg/dL] *NA* (01/19/16 3:08 AM) UA Protein [Negative Negative mg/dL mg/dL] (01/19/16 3:08 AM) UA Urobilinogen <=1.0 mg/dL [0.1-1.0 mg/dL] *NA* (01/19/16 3:08 AM) UA Bili [Negative] Negative *NA* (01/19/16 3:08 AM) UA Leuk Est Large [Negative] *ABN* (01/19/16 3:08 AM) UA Nitrite Negative [Negative] (01/19/16 3:08 AM) UA WBC [0-5 /HPF] >182 /HPF *HI* (01/19/16 3:08 AM) UA RBC [0-2 /HPF] 6 /HPF *HI* (01/19/16 3:08 AM) UA Bacteria [None Occasional /HPF Seen /HPF] *NA* (01/19/16 3:08 AM) UA Sq Epi [Few /LPF] Occasional /LPF *NA* (01/19/16 3:08 AM) HEMATOLOGY Most recent to 1 oldest [Reference Range]: WBC [3.7-10.4 K/CMM] 7.7 K/CMM (01/18/16 10:23 PM) RBC [4.20-5.40 3.60 M/CMM M/CMM] *LOW* (01/18/16 10:23 PM) Hgb [12.0-16.0 g/dL] 8.7 g/dL *LOW* (01/18/16 10:23 PM) Hct [36.0-48.0 %] 27.6 % *LOW* (01/18/16 10:23 PM) MCV [80.0-98.0 fL] 76.8 fL *LOW* (01/18/16 10:23 PM) MCH [27.0-31.0 pg] 24.2 pg *LOW* (01/18/16 10:23 PM) MCHC [32.0-36.0 31.5 g/dL g/dL] *LOW* (01/18/16 10:23 PM) RDW [11.5-14.5 %] 14.9 % *HI* (01/18/16 10:23 PM) Platelet [133-450 253 K/CMM K/CMM] (01/18/16 10:23 PM) MPV [7.4-10.4 fL] 9.3 fL (01/18/16 10:23 PM) Segs [45.0-75.0 %] 63.1 % (01/18/16 10:23 PM) Lymphocytes 25.1 % [20.0-40.0 %] (01/18/16 10:23 PM) Monocytes [2.0-12.0 7.6 % %] (01/18/16 10:23 PM) Eosinophils [0.0-4.0 3.6 % %] (01/18/16 10:23 PM) Basophils [0.0-1.0 0.6 % %] (01/18/16 10:23 PM) Segs-Bands # 4.9 K/CMM [1.5-8.1 K/CMM] (01/18/16 10:23 PM) Lymphocytes # 1.9 K/CMM [1.0-5.5 K/CMM] (01/18/16 10:23 PM) Monocytes # [0.0-0.8 0.6 K/CMM K/CMM] (01/18/16 10:23 PM) Eosinophils # 0.3 K/CMM [0.0-0.5 K/CMM] (01/18/16 10:23 PM) Microcyte [None 1+ Seen] *ABN* (01/18/16 10:23 PM) Immunizations No data available for this section Procedures Procedure Date Related Diagnosis Body Site Mammogram 2013 Colonoscopy 2012 Social History Social History Type Response Alcohol Never Smoking Status Never smoker; Exposure to Tobacco Smoke None; Cigarette Smoking Last 365 Days No; Reg Smoking Cessation Counseling No Assessment and Plan No data available for this section
--- OUTSIDE RECORDS SUMMARY | 2019-05-19 14:03 | XMS REPORT | Summary of Care ---
Author Author [facility] Organization [facility] Address Unknown Phone Unavailable Encounter HQ Desi(FIN) [id number] Date(s): 10/26/17 - 10/26/17 [facility] [address], [address] [place] [address] [phone] Discharge Disposition: Home or Self Care Attending [...]
--- OUTSIDE RECORDS SUMMARY | 2019-05-19 14:03 | XMS REPORT | Summary of Care ---
Author Author [facility] Organization [facility] Address Unknown Phone Unavailable Encounter CRISTOPHER Weeks(JEAN) [id number] Date(s): 11/14/16 - 11/14/16 [facility] [address] [place] [address]- Discharge Disposition: Home or Self Care Attending Physician: Maurizio Soto MD Referring Physician: Maurizio Soto MD Vital Signs No data available for this section Problem List Condition Effective Dates Status Health Status Informant Anemia(Confirmed) Active Arthritis(Confirmed) Resolved CKD (chronic kidney Resolved disease) stage 3, GFR 30-59 ml/min(Confirmed) Diabetes(Confirmed) Active Hypertension(Confirm Active ed) Morbid Active obesity(Confirmed) Allergies, Adverse Reactions, Alerts Substance Reaction Severity Status NKDA Active Medications No data available for this section Results CHEM PANEL Most recent to 1 oldest [Reference Range]: eGFR 26 mL/min/1.73m2 1 *NA* (11/14/16 10:21 AM) POC Creatinine 2.0 mg/dL [0.5-1.4 mg/dL] *HI* (11/14/16 10:21 AM) 1Result Comment: The eGFR is calculated using [...] be mul tiplied by the estimated BMI. Immunizations No data available for this section Procedures Procedure Date Related Diagnosis Body Site Mammogram 2013 Colonoscopy 2012 Social History Social History Type Response Alcohol Never Smoking Status Never smoker; Exposure to Tobacco Smoke None; Cigarette Smoking Last 365 Days No; Reg Smoking Cessation Counseling No Assessment and Plan No data available for this section
--- OUTSIDE RECORDS SUMMARY | 2019-05-19 14:03 | XMS REPORT | Summary of Care ---
Author Author [facility] Organization [facility] Address Unknown Phone Unavailable Encounter HQ Desi(FIN) [id number] Date(s): 10/26/17 - 10/26/17 [facility] [address], [address] [place] [address] [phone] Discharge Disposition: Home or Self Care Attending [...]
--- OUTSIDE RECORDS SUMMARY | 2019-05-19 14:03 | XMS REPORT | Summary of Care ---
Author Author [facility] Organization [facility] Address Unknown Phone Unavailable Encounter CRISTOPHER Weeks(JEAN) [id number] Date(s): 01/13/16 - 02/11/16 [facility] [address] [place] [address]- Discharge Disposition: Home Attending Physician: Hank Roy MD Referring Physician: Hank Roy MD Vital Signs Most recent to 1 oldest [Reference Range]: Temperature Oral 98.1 DegF [96.4-99.1 DegF] (01/13/16 9:00 AM) Blood Pressure 122/73 mmHg [90-140/60-90 mmHg] (01/13/16 9:00 AM) Respiratory Rate 16 BRMIN [14-20 BRMIN] (01/13/16 9:00 AM) Peripheral Pulse 87 bpm Rate [60-100 bpm] (01/13/16 9:00 AM) Problem List Condition Effective Dates Status Health Status Informant Anemia(Confirmed) Active Arthritis(Confirmed) Resolved CKD (chronic kidney Resolved disease) stage 3, GFR 30-59 ml/min(Confirmed) Diabetes(Confirmed) Active Hypertension(Confirm Active ed) Allergies, Adverse Reactions, Alerts Substance Reaction Severity Status NKDA Active Medications Benadryl + Sodium Chloride 0.9% IV 50 mL 25 mg, 0.5 mL, Route: IVPB, Drug form: INJ, ONCALL, Start date: 01/13/16 8:30:00 , Duration: 1 day, Stop date: 01/14/16 8:29:00 Notes: (Same as: Benadryl) Start Date: 01/13/16 Stop Date: 01/13/16 Status: Completed dexamethasone + Sodium Chloride 0.9% IV 50 mL 10 mg, 2.5 mL, Route: IVPB, Drug form: INJ, ONCALL, Start date: 01/13/16 8:30:00 , Duration: 1 day, Stop date: 01/14/16 8:29:00 Start Date: 01/13/16 Stop Date: 01/13/16 Status: Completed DexFerrum + Sodium Chloride 0.9% IV 100 mL 50 mg, 1 mL, Route: IVPB, Drug form: INJ, ONCALL, Start date: 01/13/16 8:30:00, Duration: 1 day, Stop date: 01/14/16 8:29:00 Notes: (Same as:DexFerrum)Non Formulary MEDICATION WASTE Product Size: 100 mgProduct Wasted: _50__ mg Start Date: 01/13/16 Stop Date: 01/13/16 Status: Completed DexFerrum + Sodium Chloride 0.9% IV 500 mL 950 mg, 19 mL, Route: IVPB, Drug form: INJ, ONCALL, Start date: 01/13/16 9:00:00 , Duration: 1 day, Stop date: 01/14/16 8:59:00 Notes: (Same as:DexFerrum)Non Formulary MEDICATION WASTE Product Size: 100 mgProduct Wasted: _50__ mg Start Date: 01/13/16 Stop Date: 01/13/16 Status: Completed Pepcid 20 mg, 2 mL, Route: IVP, Drug form: INJ, ONCALL, Start date: 01/13/16 8:30:00, D uration: 1 day, Stop date: 01/14/16 8:29:00 Notes: (Same as: Pepcid)Can be dilute in 5-10cc NS IVP: Slow IV push over at le ast 2 minutes. Start Date: 01/13/16 Stop Date: 01/13/16 Status: Completed Sodium Chloride 0.9% IV IV, 30 ml/hr, ONCALL, Start date: 01/13/16 8:30:00, Duration: 1, 250 ml Start Date: 01/13/16 Stop Date: 01/13/16 Status: Completed Results No data available for this section Immunizations No data available for this section Procedures Procedure Date Related Diagnosis Body Site Mammogram 2013 Colonoscopy 2013 Social History Social History Type Response Alcohol Never Smoking Status Never smoker; Exposure to Tobacco Smoke None; Cigarette Smoking Last 365 Days No; Reg Smoking Cessation Counseling No Assessment and Plan No data available for this section
--- OUTSIDE RECORDS SUMMARY | 2019-05-19 14:03 | XMS REPORT | Summary of Care ---
Author Author [facility] Organization [facility] Address Unknown Phone Unavailable Encounter HQ Desi(FIN) [id number] Date(s): 03/03/18 - 03/03/18 [facility] [address] [place] [address]- Discharge Disposition: Home or Self Care Attending Physician: Maurizio Soto MD Referring Physician: Maurziio Soto MD Vital Signs No data available [...]
--- OUTSIDE RECORDS SUMMARY | 2019-05-19 14:03 | XMS REPORT | Summary of Care ---
Author Author [facility] Organization [facility] Address Unknown Phone Unavailable Encounter HQ Milind_candy(FIN) [id number] Date(s): 10/25/17 - 10/25/17 [facility] [address] [place] [address]- Encounter Diagnosis Pain in left foot (Final) - 10/30/17 Discharge Disposition: Home or Self Care Attending Physician: Jignesh Johnson MD Vital Signs No data available for [...]
--- OUTSIDE RECORDS SUMMARY | 2019-05-19 14:03 | XMS REPORT | Summary of Care ---
Author Author [facility] Organization [facility] Address Unknown Phone Unavailable Encounter CRISTOPHER Weeks(JEAN) [id number] Date(s): 06/04/17 - 06/04/17 [facility] [address] [place] [address]- Discharge Disposition: Home or Self Care Attending Physician: John Avilez MD Referring Physician: John Avilez MD Vital Signs 1 2 3 Most recent to oldest [Reference Range]: 157.48 cm (05/30/17 9:40 AM) Height 98.0 DegF (05/30/17 9:40 AM) Temperature Oral [96.4-99.1 DegF] 166/86 mmHg *HI* (06/04/17 9:14 AM) 144/79 mmHg *HI* (06/04/17 8:59 AM) 128/69 mmHg (06/04/17 8:43 AM) Blood Pressure [90-140/60-90 mmHg] 16 BRMIN (06/04/17 9:14 AM) 17 BRMIN (06/04/17 8:59 AM) 21 BRMIN *HI* (06/04/17 8:43 AM) Respiratory Rate [14-20 BRMIN] 74 bpm (05/30/17 9:40 AM) Peripheral Pulse Rate [60-100 bpm] 105.114 kg (05/30/17 9:40 AM) Weight 42.38 m2 (05/30/17 9:40 AM) Body Mass Index Problem List Condition Effective Dates Status Health Status Informant Anemia(Confirmed) Active Arthritis(Confirmed) Resolved CKD (chronic kidney Resolved disease) stage 3, GFR 30-59 ml/min(Confirmed) Diabetes(Confirmed) Active Hypertension(Confirm Active ed) Morbid Active obesity(Confirmed) Allergies, Adverse Reactions, Alerts Substance Reaction Severity Status NKDA Active Medications albuterol-ipratropium 2.5-0.5 mg inhalation solution 3 mL, Route: NEB, Dosing Weight 105.114, kg, ONCE, STAT, Start date: 06/04/17 6: 57:00 CDT, Stop date: 06/04/17 6:57:00 CDT Start Date: 06/04/17 Stop Date: 06/04/17 Status: Discontinued carvedilol 6.25 mg oral tablet 6.25 mg=1 tab, PO, BID, 0 Refill(s) Start Date: 05/30/17 Status: Ordered glimepiride 4 mg oral tablet 4 mg=1 tab, PO, Daily, 0 Refill(s) Start Date: 05/30/17 Status: Ordered Lantus 100 units/mL 10 unit, SUB-Q, Daily, # 10 mL, 0 Refill(s) Start Date: 05/30/17 Status: Ordered Onglyza 5 mg oral tablet 5 mg=1 tab, PO, Daily, 0 Refill(s) Start Date: 05/30/17 Status: Ordered Sodium Chloride 0.9% IV 500 mL 500 mL, Rate: 25 ml/hr, Infuse over: 20 hr, Route: IV, Dosing Weight 105.114 kg, Total Volume: 500, Start date: 06/04/17 6:57:00 CDT, Duration: 30 day, Stop clifford e: 07/04/17 6:56:00 CDT Start Date: 06/04/17 Stop Date: 06/04/17 Status: Discontinued Results ELECTROLYTES Most recent to 1 oldest [Reference Range]: Sodium Lvl [135-145 137 mEq/L mEq/L] (05/30/17 9:54 AM) Potassium Lvl 5.1 mEq/L [3.5-5.1 mEq/L] (05/30/17 9:54 AM) Chloride Lvl [95-109 104 mEq/L mEq/L] (05/30/17 9:54 AM) CO2 [24-32 mEq/L] 28 mEq/L (05/30/17 9:54 AM) AGAP [10.0-20.0 10.1 mEq/L mEq/L] (05/30/17 9:54 AM) CHEM PANEL Most recent to 1 oldest [Reference Range]: Creatinine Lvl 2.10 mg/dL [0.50-1.40 mg/dL] *HI* (05/30/17 9:54 AM) eGFR 25 mL/min/1.73m2 1 *NA* (05/30/17 9:54 AM) BUN [7-22 mg/dL] 46 mg/dL *HI* (05/30/17 9:54 AM) Glucose Lvl [70-99 120 mg/dL mg/dL] *HI* (05/30/17 9:54 AM) Calcium Lvl 8.5 mg/dL [8.5-10.5 mg/dL] (05/30/17 9:54 AM) 1Result Comment: The eGFR is calculated [...] Diagnosis Body Site Mammogram 2013 Colonoscopy 2012 Esophagogastroduodenoscopy Meniscal repair Social History Social History Type Response Alcohol Never Smoking Status Never smoker; Exposure to Tobacco Smoke None; Cigarette Smoking Last 365 Days No; Reg Smoking Cessation Counseling No Assessment and Plan Extracted from: Title: Education PreOp Generic Author: Rigo Martinez RN [...]
--- OUTSIDE RECORDS SUMMARY | 2019-05-19 14:03 | XMS REPORT | Summary of Care ---
Author Author [facility] Organization [facility] Address Unknown Phone Unavailable Encounter HQ Milind_candy(FIN) [id number] Date(s): 09/11/18 - 09/11/18 [facility] [address] [place] [address]- Encounter Diagnosis Acute bronchitis, unspecified (Final) - 09/16/18 Diaphragmatic hernia without obstruction or gangrene (Final) - Discharge Disposition: Home or Self Care Attending Physician: Jignesh Johnson MD Vital Signs No data available for this section Problem List Condition Effective Dates Status Health Status Informant Anemia(Confirmed) Active Arthritis(Confirmed) Resolved CKD (chronic kidney Resolved disease) stage 3, GFR 30-59 ml/min(Confirmed) Diabetes(Confirmed) Active Hypertension(Confirm Active ed) Morbid Active obesity(Confirmed) Allergies, Adverse Reactions, Alerts No Known Medication Allergies Medications No data available for this section [...]
--- NOTE | 2019-05-19 14:30 | NUR ---
REPORT FROM ANGELICA Branham
--- NOTE | 2019-05-19 15:40 | Diagnostic Imaging Report ---
EXAMINATION: KNEE LEFT THREE VIEWS INDICATION: Knee pain, fall COMPARISON: None FINDINGS: 3 views of the left knee demonstrate no acute fracture or dislocation. No substantial degenerative change. Atherosclerotic basilar calcifications. No joint effusion. IMPRESSION: No acute osseous injury. Signed by: Van Bennett MD on 05/19/2019 3:37 PM
== END 2019-05-19 16:18 | disposition home or self-care (01) ==
LOC: ER 13:59
DX: S80.02XA Contusion of left knee, initial encounter (principal); W18.30XA Fall on same level, unspecified, initial encounter; Y92.238 Other place in hospital as the place of occurrence of the external cause; I10 Essential (primary) hypertension; E11.9 Type 2 diabetes mellitus without complications
CPT/HCPCS: 99283

== ENCOUNTER 2020-12-23 12:07 | Observation (INO) | payer MEDICARE ==
[~2020-12-23] VITALS: Ht 157.5 cm; Wt 104.3 kg
[2020-12-23] MEDS ORDERED: CARVEDILOL3.125 MG PO (12:26)
[2020-12-23] MEDS ORDERED: ASPIRIN325 MG PO (12:26)
[2020-12-23] MEDS ORDERED: ATORVASTATIN CA10 MG PO (12:26)
[2020-12-23] MEDS ORDERED: LANTUS 3ML100 UNITS/ (12:27)
[2020-12-23] MEDS ORDERED: SODIUM CHLORIDE 0.9% 250ML 250 ML IV ONE (12:30)
[2020-12-23 12:42] LABS: BASOPHILS % 0.3 % (0.0-1.0); EOSINOPHILS # (AUTO) 0.3 (0.0-0.4); EOSINOPHILS % 4.1 % (0.0-6.0); LYMPHOCYTES # (AUTO) 1.5 (1.0-3.2); LYMPHOCYTES % 18.9 % (18.0-39.1); MEAN CORPUSCULAR HEMOGLOBIN 29.4 pg (28-32); MEAN CORPUSCULAR HGB CONC 32.2 g/dL (31-35); MEAN CORPUSCULAR VOLUME 91.3 fL (81-99); MONOCYTES # (AUTO) 0.7 (0.2-0.8); MONOCYTES % 8.3 % (4.4-11.3); NEUTROPHILS # (AUTO) 5.3 (2.1-6.9); NEUTROPHILS % 67.1 % (38.7-80.0); PLATELET COUNT 228 x10e3/uL (140-360); RED BLOOD COUNT 2.31 x10e6/uL (3.6-5.1); RED CELL DISTRIBUTION WIDTH 12.9 % (11.7-14.4)
[2020-12-23 12:45] LABS: HEMATOCRIT 21.1 % (34.2-44.1); HEMOGLOBIN 6.8 g/dL (12.0-16.0)
[2020-12-23 13:10] LABS: ALBUMIN 2.1 g/dL (3.5-5.0); ALBUMIN/GLOBULIN RATIO 0.6 (0.8-2.0); ANION GAP 11.8 mmol/L (8-16); CALCIUM 8.7 mg/dL (8.4-10.2); CREATININE, SERUM 1.62 mg/dL (0.57-1.11); POTASSIUM 4.8 mmol/L (3.5-5.1)
[2020-12-23 14:08] VITALS: BP 146/58
[2020-12-23 14:11] VITALS: BP 146/58
[2020-12-23] MEDS ORDERED: DEXTROSE 50% SYRINGE 50 ML IV PRN (18:00)
[2020-12-23 20:00] VITALS: BP 148/59
[2020-12-23] MEDS: INSULIN LISPRO 100 UNIT/1 ML 3ML VIAL SQ SCH (20:11)
[2020-12-23] MEDS ORDERED: SODIUM CHLORIDE 0.9% 250ML 250 ML ONE (20:27)
[2020-12-23] MEDS ORDERED: INSULIN GLARGINE 100 UNITS/ML VIAL SQ SCH (21:00)
[2020-12-23] MEDS ORDERED: INSULIN GLARGINE SC SCH (21:00)
[2020-12-23] MEDS ORDERED: ATORVASTATIN 10 MG TAB PO SCH (21:00)
[2020-12-23] MEDS ORDERED: ACETAMINOPHEN 325 MG TAB PO PRN (21:15)
[2020-12-24] VITALS: BP 151/57
[2020-12-24 04:00] VITALS: BP 161/73
[2020-12-24 06:32] LABS: BASOPHILS % 0.3 % (0.0-1.0); EOSINOPHILS # (AUTO) 0.4 (0.0-0.4); EOSINOPHILS % 5.5 % (0.0-6.0); HEMATOCRIT 27.1 % (34.2-44.1); HEMOGLOBIN 8.8 g/dL (12.0-16.0); LYMPHOCYTES # (AUTO) 1.6 (1.0-3.2); LYMPHOCYTES % 20.8 % (18.0-39.1); MEAN CORPUSCULAR HEMOGLOBIN 29.2 pg (28-32); MEAN CORPUSCULAR HGB CONC 32.5 g/dL (31-35); MONOCYTES # (AUTO) 0.8 (0.2-0.8); MONOCYTES % 9.5 % (4.4-11.3); NEUTROPHILS # (AUTO) 4.9 (2.1-6.9); NEUTROPHILS % 62.4 % (38.7-80.0); PLATELET COUNT 229 x10e3/uL (140-360); RED BLOOD COUNT 3.01 x10e6/uL (3.6-5.1); RED CELL DISTRIBUTION WIDTH 13.2 % (11.7-14.4)
[2020-12-24 07:02] LABS: ALBUMIN 2.1 g/dL (3.5-5.0); ALBUMIN/GLOBULIN RATIO 0.6 (0.8-2.0); ANION GAP 12.8 mmol/L (8-16); CALCIUM 8.5 mg/dL (8.4-10.2); CREATININE, SERUM 1.41 mg/dL (0.57-1.11); POTASSIUM 4.8 mmol/L (3.5-5.1)
[2020-12-24 07:30] LABS: FERRITIN 175.57 ng/mL (4.63-204.00)
[2020-12-24 07:56] VITALS: BP 150/84
[2020-12-24] MEDS: INSULIN LISPRO 100 UNIT/1 ML 3ML VIAL SQ SCH ×2 (08:00→11:30)
[2020-12-24 08:13] VITALS: BP 150/84
[2020-12-24] MEDS ORDERED: ASPIRIN 325 MG TAB PO SCH (09:00)
[2020-12-24] MEDS ORDERED: CARVEDILOL 3.125 MG TAB PO SCH (09:00)
[2020-12-24 12:05] VITALS: BP 165/80
== END 2020-12-24 14:50 ==
LOC: ER 12:26 → ERHOLD 12:29 → MED/SURG3 13:29
PROVIDERS: ADMIT Internal Medicine; ATTEND Internal Medicine
DX: D64.9 Anemia, unspecified (principal); E11.22 Type 2 diabetes mellitus with diabetic chronic kidney disease; I12.9 Hypertensive chronic kidney disease with stage 1 through stage 4 chronic kidney disease, or unspecified chronic kidney disease; N18.30 Chronic kidney disease, stage 3 unspecified; E78.5 Hyperlipidemia, unspecified
CPT/HCPCS: 36415 ×2; 80053 ×2; 82607; 82728; 82746; 82948 ×2; 83540; 84466; 85025 ×2; 86850; 86900; 86920; 97110; 97161; 99284; G0378 ×2; J7050; P9016; U0002

== ENCOUNTER 2020-12-31 20:54 | Emergency (ER) | payer MEDICARE ==
[~2020-12-31] VITALS: Ht 157.5 cm; Wt 104.3 kg
[~2020-12-31 20:54] MED LIST changes: +ASPIRIN325 MG PO; +ATORVASTATIN CA10 MG PO; +CARVEDILOL3.125 MG PO; +LANTUS 3ML100 UNITS/
[2020-12-31 21:20] LABS: BASOPHILS % 0.3 % (0.0-1.0); EOSINOPHILS # (AUTO) 0.3 (0.0-0.4); EOSINOPHILS % 2.2 % (0.0-6.0); LYMPHOCYTES # (AUTO) 1.8 (1.0-3.2); LYMPHOCYTES % 13.1 % (18.0-39.1); MEAN CORPUSCULAR HEMOGLOBIN 28.3 pg (28-32); MEAN CORPUSCULAR HGB CONC 31.6 g/dL (31-35); MEAN CORPUSCULAR VOLUME 89.7 fL (81-99); MONOCYTES # (AUTO) 0.9 (0.2-0.8); MONOCYTES % 6.5 % (4.4-11.3); NEUTROPHILS # (AUTO) 10.5 (2.1-6.9); NEUTROPHILS % 76.8 % (38.7-80.0); PLATELET COUNT 499 x10e3/uL (140-360); RED BLOOD COUNT 2.33 x10e6/uL (3.6-5.1); RED CELL DISTRIBUTION WIDTH 13.2 % (11.7-14.4)
[2020-12-31 21:24] LABS: HEMATOCRIT 20.9 % (34.2-44.1); HEMOGLOBIN 6.6 g/dL (12.0-16.0)
[2020-12-31 21:29] LABS: INR 1.04; PROTHROMBIN TIME 14.2 seconds (11.9-14.5)
[2020-12-31 21:30] LABS: PARTIAL THROMBOPLASTIN TIME 33.7 seconds (23.8-35.5)
[2020-12-31] MEDS ORDERED: SODIUM CHLORIDE 0.9% 250ML 250 ML IV ONE (21:30)
[2020-12-31] MEDS ORDERED: FUROSEMIDE INJ 10 MG/ML 2 ML VIAL IV PRN (21:30)
[2020-12-31 21:36] LABS: ANION GAP 14.6 mmol/L (8-16); CALCIUM 8.5 mg/dL (8.4-10.2); CREATININE, SERUM 1.71 mg/dL (0.57-1.11); POTASSIUM 4.6 mmol/L (3.5-5.1)
[2021-01-01] MEDS ORDERED: ACETAMINOPHEN 325 MG TAB PO ONE (04:00)
[2021-01-01] MEDS ORDERED: ACETAMINOPHEN 325 MG TAB ONE (04:03)
[2021-01-01 04:37] VITALS: BP 161/66
== END 2021-01-01 06:04 ==
LOC: ER 21:15
DX: D64.9 Anemia, unspecified (principal)
CPT/HCPCS: 36415; 80048; 85025; 85610; 85730; 86850; 86900; 86920; 99284; J7050; P9016

== ENCOUNTER 2022-11-09 11:14 | Emergency (ER) | payer MEDICARE ==
[~2022-11-09] VITALS: Ht 160 cm; Wt 85.7 kg
[2022-11-09] MEDS ORDERED: DEXTROSE 50% SYRINGE 50 ML IV STA ×2 (11:33)
[2022-11-09] MEDS ORDERED: DEXTROSE 50% SYRINGE 50 ML IV ONE (11:47)
[2022-11-09 11:53] LABS: BASOPHILS % 0.4 % (0.0-1.0); EOSINOPHILS # (AUTO) 0.6 (0.0-0.4); EOSINOPHILS % 7.1 % (0.0-6.0); HEMATOCRIT 35.4 % (34.2-44.1); HEMOGLOBIN 10.4 g/dL (12.0-16.0); LYMPHOCYTES # (AUTO) 2.7 (1.0-3.2); LYMPHOCYTES % 29.8 % (18.0-39.1); MEAN CORPUSCULAR HEMOGLOBIN 29.3 pg (28-32); MEAN CORPUSCULAR HGB CONC 29.4 g/dL (31-35); MEAN CORPUSCULAR VOLUME 99.7 fL (81-99); MONOCYTES # (AUTO) 0.8 (0.2-0.8); MONOCYTES % 9.2 % (4.4-11.3); NEUTROPHILS # (AUTO) 4.7 (2.1-6.9); NEUTROPHILS % 53.3 % (38.7-80.0); PLATELET COUNT 250 x10e3/uL (140-360); RED BLOOD COUNT 3.55 x10e6/uL (3.6-5.1); RED CELL DISTRIBUTION WIDTH 12.2 % (11.7-14.4)
[2022-11-09 12:13] LABS: ALBUMIN 2.8 g/dL (3.5-5.0); ALBUMIN/GLOBULIN RATIO 0.6 (0.8-2.0); ANION GAP 11.1 mmol/L (8-16); CALCIUM 9.1 mg/dL (8.4-10.2); CREATININE, SERUM 2.12 mg/dL (0.57-1.11); POTASSIUM 4.1 mmol/L (3.5-5.1)
[2022-11-09 14:13] VITALS: BP 157/50
== END 2022-11-09 14:14 | disposition home or self-care (01) ==
LOC: ER 11:23
DX: R53.1 Weakness (principal); E11.649 Type 2 diabetes mellitus with hypoglycemia without coma; I10 Essential (primary) hypertension; E78.5 Hyperlipidemia, unspecified; N28.9 Disorder of kidney and ureter, unspecified; D64.9 Anemia, unspecified; Z86.73 Personal history of transient ischemic attack (TIA), and cerebral infarction without residual deficits
CPT/HCPCS: 36415; 80053; 82948; 85025; 93005; 94760; 99284; J7799